=== PATIENT | female | born 1950 | race Caucasian/White ===

== ENCOUNTER 2020-03-29 10:34 | Emergency (ER) | payer BC, MEDICARE, OTHER ==
[2020-03-29] MEDS ORDERED: Sodium Chloride 0.9% 10 ML Syringe FLUSH PRN (11:17)
--- NOTE | 2020-03-29 12:00 | MR ---
MRI brain Technique: T1 sagittal; T2, T2 FLAIR, T1 and diffusion axial; T2 gradient echo coronal and T1 weighted coronal images were obtained. Comparison: No prior intracranial imaging is available. Findings: Abnormal diffusion is seen within the posterior limb of the internal capsule with extension of abnormal diffusion into the brock radiata adjacent to the left ventricle. These areas show increased signal on the FLAIR sequence compatible with irreversible white matter infarct. FLAIR sequence also shows other smaller areas of increased signal scattered diffusely within the periventricular and subcortical white matter which is compatible with small vessel ischemic demyelination change. Ventricles along with basal cisterns and sulci over the convexities are mildly prominent. No other abnormal signal is seen. Normal signal void is seen within the major cerebral arteries within the skull base. No midline shift or mass-effect is seen. Impression: 1. Abnormal diffusion with corresponding FLAIR abnormality within the posterior limb of the internal capsule on the left side extending into the centrum semi-ovale next of the lateral ventricle compatible with fairly recent white matter infarct. 2. Other senescent change which appears chronic as described above. Diagnostic code #3 This report was dictated in MDT
--- NOTE | 2020-03-29 15:58 | EDM.PDOC ---
ED HPI GENERAL MEDICAL PROBLEM - General Chief Complaint: Neuro Symptoms/Deficits Stated Complaint: UNABLE TO WALK ON RIGHT LEG Time Seen by Provider: 03/29/20 11:00 Source of Information: Reports: Patient, Family History Limitations: Reports: No Limitations - History of Present Illness INITIAL COMMENTS - FREE TEXT/NARRATIVE: The patient presents with right sided weakness. Her last time known well was Friday at 4pm. She had some slurred speech and right arm weakness. She went to the ER in [place], [place] and they did a CT of her head that was negative. She did a little better and was admitted. She had an MRI done of her head that shows a small subacute infarct. She had an echo done that looked good. She was put on aspirin and metoprolol for her blood pressure. Over the past couple days her weakness has gotten worse where her right leg has weakness. She has moderate weakness to her right arm. She also has some facial droop. She has no fever, chills, cough, congestion, runny nose, chest pain, shortness of breath, abdominal pain, nausea or vomiting. Onset: Sudden Duration: Day(s): Severity: Moderate Improves with: Reports: None Worsens with: Reports: None Associated Symptoms: Reports: No Other Symptoms - Related Data Allergies Allergy/AdvReac Type Severity Reaction Status Date / Time No Known Allergies Allergy Verified 03/29/20 11:10 Home Meds: Home Meds ALPRAZolam [Alprazolam] 0.25 mg PO DAILY 03/29/20 [History] Aspirin [Aspirin EC] 81 mg PO DAILY 03/29/20 [History] Fluticasone/Salmeterol [Advair HFA 115-21 MCG] 2 puff INH BID 03/29/20 [History] Gabapentin [Neurontin] 100 mg PO BEDTIME 03/29/20 [History] Irbesartan/Hydrochlorothiazide [Avalide 150-12.5 mg Tablet] 150 mg PO DAILY 03/29/20 [History] Metoprolol Succinate [Toprol Xl] 50 mg PO BEDTIME 03/29/20 [History] atorvaSTATin [Lipitor] 40 mg PO BEDTIME 03/29/20 [History] Past Medical History Cardiovascular History: Reports: Hypertension Respiratory History: Reports: Asthma Other Musculoskeletal History: scoliosis Social & Family History - Tobacco Use Smoking Status *Q: Never Smoker - Alcohol Use Days Per Week of Alcohol Use: 7 Number of Drinks Per Day: 2 Total Drinks Per Week: 14 - Recreational Drug Use Recreational Drug Use: No ED ROS GENERAL - Review of Systems Review Of Systems: See Below Constitutional: Reports: No Symptoms HEENT: Reports: No Symptoms Respiratory: Reports: No Symptoms Cardiovascular: Reports: No Symptoms Endocrine: Reports: No Symptoms GI/Abdominal: Reports: No Symptoms : Reports: No Symptoms Musculoskeletal: Reports: No Symptoms Skin: Reports: No Symptoms Neurological: Reports: Weakness (Right arm, leg or facial weakness) ED EXAM, NEURO - Physical Exam Exam: See Below Exam Limited By: No Limitations General Appearance: Alert, No Apparent Distress Ears: Normal External Exam Nose: Normal Inspection Head Exam: Atraumatic, Normocephalic Neck: Normal Inspection Respiratory/Chest: No Respiratory Distress, Lungs Clear, Normal Breath Sounds Cardiovascular: Regular Rate, Rhythm, No Edema, No Murmur GI/Abdominal: Soft, Non-Tender, No Organomegaly, No Mass Neurological: Alert, Oriented x 3, Other (Moderate weakness to the right arm and leg and there is mild facial droop to the right side of her face) Course - Vital Signs Last Recorded V/S: Last Vital Signs Temp 98.5 F 03/29/20 11:06 Pulse 86 03/29/20 11:06 Resp 16 03/29/20 11:06 BP 145/94 H 03/29/20 11:06 Pulse Ox 98 03/29/20 11:06 - Orders/Labs/Meds Orders: Active Orders 24 hr Category Date Time Status Cardiac Monitoring [RC] . DIRECTED Care 03/29/20 11:17 Active EKG Documentation Completion [RC] STAT Care 03/29/20 11:17 Active Peripheral IV Care [RC] . DIRECTED Care 03/29/20 11:17 Active Sodium Chloride 0.9% [Saline Flush] Med 03/29/20 11:17 Active 10 ml FLUSH ASDIRECTED PRN Peripheral IV Insertion Adult [OM.PC] Stat Oth 03/29/20 11:17 Ordered Medication Orders Sodium Chloride (Saline Flush) 10 ml FLUSH ASDIRECTED PRN PRN Reason: Keep Vein Open Last Admin: 03/29/20 11:37 Dose: 10 ml Documented by: SHANIA Labs: Laboratory Tests 07/22/20 07/22/20 07/22/20 Range/Units 11:10 11:10 11:10 WBC 8.19 (3.98-10.04) K/mm3 RBC 4.43 (3.98-5.22) M/mm3 Hgb 13.0 (11.2-15.7) gm/dl Hct 39.6 (34.1-44.9) % MCV 89.4 (79.4-94.8) fl MCH 29.3 (25.6-32.2) pg MCHC 32.8 (32.2-35.5) g/dl RDW Std Deviation 40.0 (36.4-46.3) fL Plt Count 314 (182-369) K/mm3 MPV 9.4 (9.4-12.3) fl Neut % (Auto) 59.3 (34.0-71.1) % Lymph % (Auto) 28.2 (19.3-51.7) % Power % (Auto) 11.0 (4.7-12.5) % Eos % (Auto) 1.1 (0.7-5.8) Baso % (Auto) 0.2 (0.1-1.2) % Neut # (Auto) 4.85 (1.56-6.13) K/mm3 Lymph # (Auto) 2.31 (1.18-3.74) K/mm3 Power # (Auto) 0.90 H (0.24-0.36) K/mm3 Eos # (Auto) 0.09 (0.04-0.36) K/mm3 Baso # (Auto) 0.02 (0.01-0.08) K/mm3 PT 10.0 (9.7-12.0) SECONDS INR < 0.93 APTT 28 (22-31) SECONDS Sodium (136-145) mEq/L Potassium (3.5-5.1) mEq/L Chloride (98-107) mEq/L Carbon Dioxide (21-32) mEq/L Anion Gap (5-15) BUN (7-18) mg/dL Creatinine (0.55-1.02) mg/dL Est Cr Clr Drug Dosing Estimated GFR (MDRD) (>60) mL/min BUN/Creatinine Ratio (14-18) Glucose (80-115) mg/dL POC Glucose 122 H (80-115) mg/dL Calcium (8.5-10.1) mg/dL Total Bilirubin (0.2-1.0) mg/dL AST (15-37) U/L ALT (14-59) U/L Alkaline Phosphatase (46-116) U/L Troponin I (0.00-0.056) ng/mL Total Protein (6.4-8.2) g/dl Albumin (3.4-5.0) g/dl Globulin gm/dL Albumin/Globulin Ratio (1-2) COVID-19 (JULIETH) (NEGATIVE) 03/29/20 03/29/20 Range/Units 11:10 15:00 WBC (3.98-10.04) K/mm3 RBC (3.98-5.22) M/mm3 Hgb (11.2-15.7) gm/dl Hct (34.1-44.9) % MCV (79.4-94.8) fl MCH (25.6-32.2) pg MCHC (32.2-35.5) g/dl RDW Std Deviation (36.4-46.3) fL Plt Count (182-369) K/mm3 MPV (9.4-12.3) fl Neut % (Auto) (34.0-71.1) % Lymph % (Auto) (19.3-51.7) % Power % (Auto) (4.7-12.5) % Eos % (Auto) (0.7-5.8) Baso % (Auto) (0.1-1.2) % Neut # (Auto) (1.56-6.13) K/mm3 Lymph # (Auto) (1.18-3.74) K/mm3 Power # (Auto) (0.24-0.36) K/mm3 Eos # (Auto) (0.04-0.36) K/mm3 Baso # (Auto) (0.01-0.08) K/mm3 PT (9.7-12.0) SECONDS INR APTT (22-31) SECONDS Sodium 132 L (136-145) mEq/L Potassium 3.6 (3.5-5.1) mEq/L Chloride 96 L (98-107) mEq/L Carbon Dioxide 29 (21-32) mEq/L Anion Gap 10.6 (5-15) BUN 15 (7-18) mg/dL Creatinine 0.8 (0.55-1.02) mg/dL Est Cr Clr Drug Dosing TNP Estimated GFR (MDRD) > 60 (>60) mL/min BUN/Creatinine Ratio 18.8 H (14-18) Glucose 106 (80-115) mg/dL POC Glucose (80-115) mg/dL Calcium 9.2 (8.5-10.1) mg/dL Total Bilirubin 0.5 (0.2-1.0) mg/dL AST 116 H (15-37) U/L ALT 144 H (14-59) U/L Alkaline Phosphatase 143 H (46-116) U/L Troponin I < 0.017 (0.00-0.056) ng/mL Total Protein 7.8 (6.4-8.2) g/dl Albumin 3.8 (3.4-5.0) g/dl Globulin 4.0 gm/dL Albumin/Globulin Ratio 1.0 (1-2) COVID-19 (JULIETH) Negative (NEGATIVE) Meds: Medications Generic Name Dose Route Start Last Admin Trade Name Freq PRN Reason Stop Dose Admin Sodium Chloride 10 ml 03/29/20 11:17 03/29/20 11:37 Saline Flush FLUSH 10 ml ASDIRECTED PRN Administration Keep Vein Open - Re-Assessments/Exams Free Text/Narrative Re-Assessment/Exam: 03/29/20 16:06 A stroke alert was called and I went into the room right away. I ordered an IV saline lock, EKG, MRI of her head and labs. Her MRI shows abnormal diffusion with corresponding diffusion with corresponding FLAIR abnormality within the posterior limb of the internal capsule on the left side extending into the centrum semi-ovale next of the lateral ventricle compatible with fairly recent white matter infarct. Other senescent change which appears chronic. Her CBC looks good. Her Na is low at 132. Her AST is elevated at 116. Her ALT was elevated at 144. Her Alk Phos is elevated. Her troponin is negative. Her COVID is negative. I called [facility] in [place] and talked with Dr Wright the neruologist and Dr Haro and they accepted the patient. She will be going by ground ambulance. Departure - Departure Time of Disposition: 16:10 Disposition: DC/Tfer to Acute Hospital 02 Condition: Fair Clinical Impression: Cerebrovascular accident (CVA) Qualifiers: CVA mechanism: unspecified Qualified Code(s): I63.9 - Cerebral infarction, unspecified - Discharge Information Referrals: PCP,Not In Area [Primary Care Provider] - Forms: ED Department Discharge Sepsis Event Note (ED) - Evaluation Sepsis Screening Result: No Definite Risk - Focused Exam Vital Signs: Vital Signs Temp Pulse Resp BP Pulse Ox 03/29/20 11:06 98.5 F 86 16 145/94 H 98 - My Orders Last 24 Hours: My Active Orders 03/29/20 11:17 Cardiac Monitoring [RC] . DIRECTED EKG Documentation Completion [RC] STAT Peripheral IV Care [RC] . DIRECTED Sodium Chloride 0.9% [Saline Flush] 10 ml FLUSH ASDIRECTED PRN Peripheral IV Insertion Adult [OM.PC] Stat - Assessment/Plan Last 24 Hours: My Active Orders 03/29/20 11:17 Cardiac Monitoring [RC] . DIRECTED EKG Documentation Completion [RC] STAT Peripheral IV Care [RC] . DIRECTED Sodium Chloride 0.9% [Saline Flush] 10 ml FLUSH ASDIRECTED PRN Peripheral IV Insertion Adult [OM.PC] Stat
== END 2020-03-29 16:20 ==
LOC: JD.ED 10:34
DX: I63.9 Cerebral infarction, unspecified (principal); Z20.828 Contact with and (suspected) exposure to other viral communicable diseases; J45.909 Unspecified asthma, uncomplicated; I10 Essential (primary) hypertension; M41.9 Scoliosis, unspecified; Z79.899 Other long term (current) drug therapy; Z79.82 Long term (current) use of aspirin
CPT/HCPCS: 36415; 70551; 80053; 82962; 84484; 85025; 85610; 85730; 93005; 99285; U0002; 93010